=== PATIENT | female | born 1965 ===

== ENCOUNTER 2017-01-18 14:55 | Emergency (ER) | payer OTHER ==
[2017-01-18 15:14] VITALS: BP 159/87
--- NOTE | 2017-01-18 16:03 | EDM.PDOC ---
ED HPI GENERAL MEDICAL PROBLEM - General Chief Complaint: Lower Extremity Injury/Pain Stated Complaint: ANKLE INJURY Time Seen by Provider: 01/18/17 15:42 Source of Information: Reports: Patient History Limitations: Reports: No Limitations - History of Present Illness INITIAL COMMENTS - FREE TEXT/NARRATIVE: 52-year-old female presents for evaluation treatment of an injury to the right foot and ankle. Patient reports last night she was walking. She states that she stepped off some steps and fell. She is unsure exactly she inverted her foot or how she fell onto the foot she reports hearing a pop. She reports since then she has had significant pain to the right lateral foot and ankle. She reports swelling and bruising to the right lateral foot and ankle. Reports numbness and tingling to the foot. No open wounds. No obvious deformity. She has bear weight on the foot but has had significant pain with doing so. Location: Reports: Lower Extremity, Right Treatments CURATOR OF COLLECTIONS: Reports: NSAIDS Right Ankle Pain Score (Numeric/FACES): 7 - Related Data Allergies Allergy/AdvReac Type Severity Reaction Status Date / Time erythromycin base Allergy Hives Verified 01/18/17 15:14 Home Meds: Home Meds Ezetimibe/Simvastatin [Ezetimibe-Simvastatin 10-40 mg] 1 each PO DAILY 01/18/17 [History] Levothyroxine Sodium [Synthroid] 75 mcg PO DAILY 01/18/17 [History] Montelukast [Singulair] 10 mg PO BEDTIME 01/18/17 [History] Pentosan Polysulfate Sodium [Elmiron] 100 mg PO TID 01/18/17 [History] Ranitidine [Zantac] 150 mg PO BEDTIME 01/18/17 [History] Temazepam [Restoril] 15 mg PO BEDTIME 01/18/17 [History] Ziprasidone HCl [Geodon] 160 mg PO DAILY 01/18/17 [History] diphenhydrAMINE [Benadryl] 50 mg PO BEDTIME 01/18/17 [History] traMADol [Ultram] 50 mg PO Q6H PRN #20 tablet 01/18/17 [Rx] Past Medical History Cardiovascular History: Reports: High Cholesterol, Hypertension Respiratory History: Reports: Asthma Gastrointestinal History: Reports: GERD Genitourinary History: Reports: Other (See Below) Other Genitourinary History: patient told she has "third stage kidney something " 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: Psychiatric History: Reports: Bipolar Endocrine/Metabolic History: Reports: Hypothyroidism Hematologic History: Reports: Anemia - Past Surgical History HEENT Surgical History: Reports: Adenoidectomy, Myringotomy w Tube(s), Tonsillectomy, Other (See Below) Other HEENT Surgeries/Procedures: broken nose repair Cardiovascular Surgical History: Reports: None GI Surgical History: Reports: Appendectomy, Cholecystectomy Female Surgical History: Reports: Hysterectomy Social & Family History - Tobacco Use Smoking Status *Q: Never Smoker Second Hand Smoke Exposure: No - Caffeine Use Caffeine Use: Reports: Soda - Recreational Drug Use Recreational Drug Use: No Review of Systems - Review of Systems Review Of Systems: See Below Musculoskeletal: Reports: Foot Pain (right), Joint Swelling (right foot and ankle) Skin: Reports: Bruising (right lateral foot). Denies: Wound Neurological: Reports: Difficulty Walking (due to right foot and ankle pain). Denies: Numbness, Tingling ED EXAM, GENERAL - Physical Exam Exam: See Below Exam Limited By: No Limitations General Appearance: Alert, WD/WN, No Apparent Distress Respiratory/Chest: No Respiratory Distress Cardiovascular: Normal Peripheral Pulses, Regular Rate, Rhythm Peripheral Pulses: 2+: Posterior Tibial (L), Posterior Tibial (R), Dorsalis Pedis (L), Dorsalis Pedis (R) Extremities: Normal Capillary Refill, Other (tenderness to palpation to the right lateral distal malleolus and the right lateral dorsal foot; swelling and bruising presents to these areas; decreased ROM due to pain, able to wiggle toes but reports pain with dorsiflexion, plantarflexoin, inversion and eversion) Neurological: Alert, Oriented, Other (reports sensation to light touch to the right foot) Psychiatric: Normal Affect, Normal Mood Skin Exam: Warm, Dry, Normal Color Course - Vital Signs Last Recorded V/S: Last Vital Signs Temp 36.8 C 01/18/17 15:11 Pulse 79 01/18/17 15:11 Resp 1 L 01/18/17 15:11 BP 159/87 H 01/18/17 15:11 Pulse Ox 94 L 01/18/17 15:11 - Radiology Interpretation Free Text/Narrative:: xray of the right foot and ankle shows a nondisplaced fracture of the proximal 5th metatarsal - Re-Assessments/Exams Free Text/Narrative Re-Assessment/Exam: 01/18/17 17:26 I reviewed the x-ray results with the patient. She does not feel she can be safe on crutches and a splint. We opted instead to use a walking boot. I'll prescribe her a small amount of medication for pain. I will have her follow-up with orthopedics. Discharge instructions as documented. Departure - Departure Time of Disposition: 17:27 Disposition: Home, Self-Care 01 Condition: Good Clinical Impression: Fracture of 5th metatarsal - Discharge Information Prescriptions: traMADol [Ultram] 50 mg PO Q6H PRN #20 tablet PRN Reason: Pain Instructions: Metatarsal Fracture Referrals: PCP,Not In Area [Primary Care Provider] - Hood Maldonado MD [Physician] - Forms: ED Department Discharge Additional Instructions: wear the walking boot at all times when up and walking around. may remove to ice and to bathe. Ice the foot and ankle 3 to 4 times a day for 10-15 minutes [id number] ibuprofen or Tylenol as needed for pain relief. For severe pain not relieved by [id number] Tylenol or Motrin you may take Tramadol 1 tablet every [address] machinery within 12 hours of taking the tramadol. Tramadol can be habit-forming, I recommend you take as few of these as needed to control your pain. Follow-up with orthopedics in 1-[address] Maldonado. Please call [phone] to schedule an appointment with him. Please return to the ER if your symptoms change or worsen.
--- NOTE | 2017-01-19 19:58 | CR ---
Right ankle: Four views of the right ankle were obtained. Fracture identified within the base of the fifth metatarsal. Small plantar spur is seen. Soft tissue swelling is identified. Bone density is seen off the inferior fibula possibly due to minimal cortical avulsion fracture. No additional abnormality is identified. Impression: 1. Slightly displaced fracture within the base of the fifth metatarsal. 2. Minimal calcification off the inferior fibula possibly due to small cortical avulsion fracture. 3. Other incidental findings. Diagnostic code #3
--- NOTE | 2017-01-19 19:58 | CR ---
Right foot: Four views of the right foot were obtained. Comparison: No previous foot study. Slightly displaced fracture is identified within the base of the fifth metatarsal. Mild bunion deformity is identified. Soft tissue swelling is seen. Plantar spur is noted. Minimal spur at the attachment of the Achilles tendon to the calcaneus is seen. No additional fracture or other bony abnormality is identified. Impression: 1. Mildly displaced fracture within the base of the fifth metatarsal. 2. Other incidental findings as described above. Diagnostic code #3
== END 2017-01-18 18:00 | disposition home or self-care (01) ==
LOC: JD.ED 14:55
DX: S92.354A Nondisplaced fracture of fifth metatarsal bone, right foot, initial encounter for closed fracture (principal); I10 Essential (primary) hypertension; K21.9 Gastro-esophageal reflux disease without esophagitis; Z79.899 Other long term (current) drug therapy; E03.9 Hypothyroidism, unspecified; W10.9XXA Fall (on) (from) unspecified stairs and steps, initial encounter
CPT/HCPCS: 73610-26-RT; 73610-RT; 73630-26-RT; 73630-RT; 99283